=== PATIENT | male | born 1985 | race Caucasian/White ===

== ENCOUNTER 2017-06-11 16:40 | Emergency (ER) | END 2017-06-11 21:11 | disposition home or self-care (01) ==

== ENCOUNTER 2017-06-13 12:24 | Emergency (ER) | END 2017-06-13 12:41 | disposition home or self-care (01) ==

== ENCOUNTER 2017-06-20 12:02 | Emergency (ER) | END 2017-06-20 14:55 | disposition home or self-care (01) ==